=== PATIENT | female | born 1990 | race Caucasian/White ===

== ENCOUNTER 2017-02-22 07:36 | Emergency (ER) | payer SELFPAY ==
[~2017-02-22] VITALS: Ht 170.2 cm; Wt 85.0 kg
[2017-02-22 07:37] VITALS: BP 118/73; PULSE 78; RESP 16; TEMP 98.4; O2SAT 98
[2017-02-22] MEDS ORDERED: LIDOCAINE 1%/EPINEPHrine 1:100,000 SOLN 20 ML VIAL INFIL ONE (08:15)
--- NOTE | 2017-02-22 08:22 | PD ---
HPI Chief Complaint: Skin Problem Time Seen by Provider: 08:16 Travel History International Travel<30 days: No Contact w/Intl Traveler<30days: No Traveled to known affect area: No History of Present Illness HPI 26-year-old female presents the emergency department with abscess to the right upper medial thigh. Patient states she's had one of these previously of several years ago. Patient states it's been present for the past couple of days because worse last evening. She says no spontaneous drainage. Pain is currently 9/10. There is no fever, chills, or other symptoms. She has no known drug allergies. No known history of MRSA. PFSH Past Medical History Medical History: Denies Significant Hx Diminished Hearing: No Immunizations Current: No Tetanus Vaccination: < 5 Years Influenza Vaccination: No ?: Not Social History Alcohol Use: Yes Tobacco Use: Yes Substance Use: Yes ([facility]) Allergies-Medications (Allergen,Severity, Reaction): Coded Allergies: No Known Allergies (Unverified , 02/22/17) Reported Meds & Prescriptions Reported Meds & Active Scripts Active No Active Prescriptions or Reported Medications Review of Systems General / Constitutional: No: Fever, Chills Eyes: No: Visual changes HENT: No: Headaches Cardiovascular: No: Chest Pain or Discomfort Respiratory: No: Shortness of Breath Gastrointestinal: No: Abdominal Pain Genitourinary: No: Dysuria Musculoskeletal: No: Pain Skin: Positive Lesions (see history of present illness.), No Rash Neurologic: No: Weakness Psychiatric: No: Depression Endocrine: No: Polydipsia Hematologic/Lymphatic: No: Easy Bruising Physical Exam Narrative GENERAL: Patient is in mild to moderate distress. SKIN: Warm and dry. Normal color. Normal turgor. Patient has a walnut sized tender indurated abscess to the right upper medial thigh with pointing. HEAD: Atraumatic. Normocephalic. EYES: Pupils equal and round. No scleral icterus. No injection or drainage. ENT: No nasal bleeding or discharge. Mucous membranes pink and moist. Pharynx is clear. Airway is patent. NECK: Trachea midline. Supple and nontender.. CARDIOVASCULAR: Regular rate and rhythm. RESPIRATORY: No accessory muscle use. Clear to auscultation. Breath sounds equal bilaterally. MUSCULOSKELETAL: Extremities without clubbing, cyanosis, or edema. No obvious deformities. NEUROLOGICAL: Awake and alert. No obvious cranial nerve deficits. Motor grossly within normal limits. Five out of 5 muscle strength in the arms and legs. Normal speech. PSYCHIATRIC: Appropriate mood and affect; insight and judgment normal. Data Data Last Documented VS Vital Signs Date Time Temp Pulse Resp B/P Pulse Ox O2 Delivery O2 Flow Rate FiO2 02/22/17 07:37 98.4 78 16 118/73 98 Orders Lidocai-Epi 1%-1:100,000 Inj (Xylocaine- (02/22/17 08:15) Wound Culture And Gram Stain (02/22/17 08:15) MDM Medical Decision Making Medical Screen Exam Complete: Yes Emergency Medical Condition: Yes Medical Record Reviewed: Yes Differential Diagnosis Cellulitis. Abscess. MRSA. Narrative Course I&D the abscess is performed with packing placed. Patient is given Bactrim DS twice a day 7 days. Patient is given ibuprofen 600 mg 4 times a day #40. Patient to return in 2 days for packing removal and wound check. Patient can return sooner as needed. Procedures Procedure Narrative After the risks and benefits were discussed the following procedure was performed: INCISION AND DRAINAGE OF ABSCESS: The area was prepped and was sterilely draped. Patient elected to have procedure done without anesthesia. A number # [id number] scalpel was used to make a 1-cm incision across the area of the abscess. Cultures were obtained. The abscess was drained an irrigated with normal saline. Quarter inch iodoform packing was placed in the wound. Sterile dressing applied. Patient advised to have packing removed in two days. Diagnosis Primary Impression: Abscess Referrals: Primary Care Physician Patient Instructions: Abscess Incision and Drainage (ED), General Instructions Additional Instructions: I&D the abscess is performed with packing placed. Patient is given Bactrim DS twice a day 7 days. Patient is given ibuprofen 600 mg 4 times a day #40. Patient to return in 2 days for packing removal and wound check. Patient can return sooner as needed. Med/Other Pt SpecificInfo: Wound Care Scripts Ibuprofen 600 Mg Bhn412 Mg PO Q6H PRN (Pain/Inflammation) #40 TAB Prov:Oren Soto MD 02/22/17 Sulfamethoxazole-Trimethoprim (Bactrim DS)800-160 Mg Tab1 Tab PO BID #14 TAB Prov:Oren Soto MD 02/22/17 Disposition: 01 DISCHARGE HOME Condition: Stable Gagan Ernst Feb 22, 2017 08:21
[2017-02-22] MEDS ORDERED: IBUP-232 PO (08:25)
[2017-02-22] MEDS ORDERED: BACT800T5 PO (08:25)
== END 2017-02-22 08:31 | disposition home or self-care (01) ==
LOC: NEPK 07:36
DX: L02.415 Cutaneous abscess of right lower limb (principal); B96.89 Other specified bacterial agents as the cause of diseases classified elsewhere; Z72.0 Tobacco use; F12.90 Cannabis use, unspecified, uncomplicated
CPT/HCPCS: 10061; 87070; 87185